=== PATIENT | male | born 1930 | race Caucasian/White ===

== ENCOUNTER 2016-03-21 04:13 | Inpatient (IN) | payer OTHER ==
[~2016-03-21] VITALS: Ht 177.8 cm; Wt 88.0 kg
[~2016-03-21 04:13] MED LIST: CHL4PW PO; GEMF600T3 OR; THAL100C PO; [UNRECOGNIZED DRUG - CODE] IV
[2016-03-21 04:33] LABS: Basophils # (auto) 0 uL; Basophils % (auto) 0.6 % (0.0-2.0); DEFINITIVE VIEW TRANSMISSION; Eosinophils # (auto) 0.1 uL; Eosinophils % (auto) 2.7 % (0.0-7.0); Hematocrit 37.8 % (41.0-53.0); Hemoglobin 12.5 g/dL (13.5-17.5); Lymphocytes # (auto) 0.6 uL; Lymphocytes % (auto) 17.6 % (10.0-50.0); Mean Corpuscular Hemoglobin 35.6 pg (28.0-32.0); Mean Corpuscular Volume 107.9 fL (80.0-100.0); Monocytes # (auto) 0.2 uL; Monocytes % (auto) 4.8 % (0.0-12.0); Neutrophils # (auto) 2.4 uL; Neutrophils % (auto) 74.3 % (37.0-80.0); Platelet Count (auto) 50 10^3/uL (140-450); SUSPECT VIEW TRANSMISSION; White Blood Cell 3.2 10^3/uL (4.4-10.8)
[2016-03-21 04:39] LABS: Red Cell Distribution Width 20.4 % (11.6-16.0)
[2016-03-21 04:48] LABS: Partial Thromboplastin Time 41.5 sec (22.64-33.71)
[2016-03-21 04:52] LABS: Prothrombin Time 56.3 sec (9.37-12.3)
[2016-03-21 04:53] LABS: INR 5.47 (0.9-1.15)
[2016-03-21 05:01] LABS: Albumin 3.3 g/dL (3.4-5.0); Calcium 8.3 mg/dL (8.5-10.1); Potassium 4.2 mmol/L (3.5-5.1)
[2016-03-21 05:04] LABS: Bilirubin, Total 1.5 mg/dL (0.2-1.0); Total Protein 6.2 g/dL (6.4-8.2)
[2016-03-21 05:09] LABS: Anisocytosis Slight; Platelet Estimate Decreased
[2016-03-21 05:10] LABS: Macrocytosis Moderate
[2016-03-21 05:11] LABS: Ovalocytes FEW
[2016-03-21] MEDS ORDERED: ONDANSETRON HCL 4 MG/2 ML VIAL IV ONE (05:15)
[2016-03-21] MEDS ORDERED: MORPHINE SULFATE 4 MG/ML SYRG IV ONE (05:15)
[2016-03-21] MEDS ORDERED: ASPI81TA27 PO (06:38)
[2016-03-21] MEDS ORDERED: cloNIDine HCL 0.1 MG TAB PO PRN (09:30)
[2016-03-21] MEDS ORDERED: cefTRIAXone 1GM/50ML D5W 50 ML IV ONE (09:30)
[2016-03-21] MEDS ORDERED: TEMAZEPAM 15 MG CAP PO PRN (09:45)
[2016-03-21] MEDS ORDERED: HYDROcodone-ACET 5/325MG TAB PO PRN (09:45)
[2016-03-21] MEDS ORDERED: ACETAMINOPHEN 325 MG TAB PO PRN (09:45)
[2016-03-21] MEDS ORDERED: MORPHINE SULF INJ 2 MG/ML SYRINGE 1ML IV PRN ×2 (09:45)
[2016-03-21] MEDS ORDERED: ONDANSETRON HCL 4 MG/2 ML VIAL IV PRN (09:45)
[2016-03-21] MEDS: SODIUM CHLORIDE 0.9% 1,000 ML IV SCH (10:07)
[2016-03-21] MEDS: FAMOTIDINE 20 MG TAB PO SCH ×2 (10:10→21:23)
[2016-03-21] MEDS: MULTIPLE VITAMIN TAB PO SCH (10:10)
[2016-03-21] MEDS: GEMFIBROZIL 600 MG TAB PO SCH ×2 (10:10→21:22)
[2016-03-21 10:46] VITALS: BP 115/65
[2016-03-21] MEDS: CHOLESTYRAMINE 4 GM POWDER PO SCH ×2 (11:00→23:20)
[2016-03-21] MEDS: BOOST PLUS 8 ounce PO SCH ×2 (12:00→21:23)
[2016-03-21 15:14] VITALS: BP 118/72
[2016-03-21] MEDS: AZITHROMYCIN 500MG/D5W 250ML 250 ML IV SCH (15:45)
[2016-03-21 17:00] VITALS: BP_SYST 119; BP_SYST 96; BP_DIAS 64; BP_DIAS 76
[2016-03-21] MEDS: MORPHINE SULF 30 mg ER tab PO SCH (21:23)
[2016-03-21 22:00] VITALS: BP 127/64
[2016-03-21] MEDS ORDERED: SENNA 8.6 MG TAB PO ONE (22:00)
[2016-03-22] MEDS: SODIUM CHLORIDE 0.9% 1,000 ML IV SCH ×2 (03:29→21:51)
[2016-03-22 04:20] LABS: Urine RBC None Seen /hpf (0 - 3)
[2016-03-22 04:36] LABS: Urine Bilirubin Negative (Negative); Urine Blood Negative /uL (Negative); Urine Color Yellow (Yellow); Urine Glucose Normal (Normal); Urine Ketone Negative (Negative); Urine Nitrite Negative (Negative); Urine pH 5.5 (5.0-8.0)
[2016-03-22 05:00] VITALS: BP 127/68
[2016-03-22 06:07] LABS: Basophils # (auto) 0 uL; Basophils % (auto) 0.6 % (0.0-2.0); DEFINITIVE VIEW TRANSMISSION; Eosinophils # (auto) 0.1 uL; Hematocrit 34.5 % (41.0-53.0); Hemoglobin 11.4 g/dL (13.5-17.5); Lymphocytes # (auto) 0.5 uL; Lymphocytes % (auto) 26.1 % (10.0-50.0); Mean Corpuscular Hemoglobin 35.7 pg (28.0-32.0); Mean Corpuscular Hgb Conc. 33.1 g/dL (32.0-36.0); Mean Platelet Volume 10.4 fL (7.4-10.4); Monocytes # (auto) 0.1 uL; Monocytes % (auto) 5.5 % (0.0-12.0); Neutrophils # (auto) 1.3 uL; Neutrophils % (auto) 64.8 % (37.0-80.0); Platelet Count (auto) 46 10^3/uL (140-450)
[2016-03-22 06:29] LABS: Red Cell Distribution Width 21.2 % (11.6-16.0)
[2016-03-22 06:35] LABS: Albumin 3.1 g/dL (3.4-5.0); BUN/Creatinine Ratio 21.4; Bilirubin, Total 1.3 mg/dL (0.2-1.0); Calcium 8.5 mg/dL (8.5-10.1); Total Protein 5.9 g/dL (6.4-8.2)
[2016-03-22 06:46] LABS: Anisocytosis Moderate
[2016-03-22 06:47] LABS: Macrocytosis Moderate; Ovalocytes FEW; Platelet Estimate Decreased
[2016-03-22] MEDS: BOOST PLUS 8 ounce PO SCH ×3 (08:00→18:00)
[2016-03-22 08:56] VITALS: BP 118/76
[2016-03-22] MEDS: cefTRIAXone 1GM/50ML D5W 50 ML IV SCH (09:00)
[2016-03-22] MEDS: AZITHROMYCIN 500MG/D5W 250ML 250 ML IV SCH (10:04)
[2016-03-22] MEDS: GEMFIBROZIL 600 MG TAB PO SCH ×2 (10:05→21:51)
[2016-03-22] MEDS: FAMOTIDINE 20 MG TAB PO SCH ×2 (10:05→21:51)
[2016-03-22] MEDS: MORPHINE SULF 30 mg ER tab PO SCH ×2 (10:06→21:51)
[2016-03-22] MEDS: MULTIPLE VITAMIN TAB PO SCH (10:06)
[2016-03-22] MEDS: CHOLESTYRAMINE 4 GM POWDER PO SCH ×2 (11:00→23:29)
[2016-03-22 13:01] VITALS: BP 133/71
[2016-03-22 16:58] VITALS: BP 127/72
[2016-03-22 22:00] VITALS: BP 125/87
[2016-03-23 05:00] VITALS: BP 129/80
[2016-03-23 07:36] LABS: Basophils # (auto) 0.1 uL; Basophils % (auto) 2.3 % (0.0-2.0); DEFINITIVE VIEW TRANSMISSION; Eosinophils # (auto) 0 uL; Eosinophils % (auto) 0.8 % (0.0-7.0); Hematocrit 36.8 % (41.0-53.0); Hemoglobin 11.8 g/dL (13.5-17.5); Lymphocytes # (auto) 0.5 uL; Lymphocytes % (auto) 21.6 % (10.0-50.0); Mean Corpuscular Hemoglobin 35.4 pg (28.0-32.0); Mean Corpuscular Hgb Conc. 32.1 g/dL (32.0-36.0); Mean Corpuscular Volume 110.2 fL (80.0-100.0); Mean Platelet Volume 10.2 fL (7.4-10.4); Monocytes # (auto) 0.1 uL; Monocytes % (auto) 5.9 % (0.0-12.0); Neutrophils # (auto) 1.5 uL; Neutrophils % (auto) 69.4 % (37.0-80.0); Platelet Count (auto) 45 10^3/uL (140-450); SUSPECT VIEW TRANSMISSION; White Blood Cell 2.2 10^3/uL (4.4-10.8)
[2016-03-23 07:51] LABS: Red Cell Distribution Width 20.3 % (11.6-16.0)
[2016-03-23] MEDS: BOOST PLUS 8 ounce PO SCH ×2 (08:00→12:03)
[2016-03-23 08:07] LABS: BUN/Creatinine Ratio 22.1; Calcium 8.7 mg/dL (8.5-10.1); Potassium 4.6 mmol/L (3.5-5.1)
[2016-03-23 09:00] VITALS: BP 108/60
[2016-03-23] MEDS: cefTRIAXone 1GM/50ML D5W 50 ML IV SCH (09:32)
[2016-03-23] MEDS: GEMFIBROZIL 600 MG TAB PO SCH (09:32)
[2016-03-23] MEDS: MORPHINE SULF 30 mg ER tab PO SCH (09:33)
[2016-03-23] MEDS: MULTIPLE VITAMIN TAB PO SCH (09:33)
[2016-03-23] MEDS: FAMOTIDINE 20 MG TAB PO SCH (09:33)
[2016-03-23 09:34] LABS: Anisocytosis Slight; Macrocytosis Slight; Platelet Estimate Markedly Decreased
[2016-03-23] MEDS: SODIUM CHLORIDE 0.9% 1,000 ML IV SCH (11:05)
[2016-03-23] MEDS: CHOLESTYRAMINE 4 GM POWDER PO SCH (11:05)
[2016-03-23] MEDS: AZITHROMYCIN 500MG/D5W 250ML 250 ML IV SCH (11:05)
[2016-03-23 13:00] VITALS: BP 103/70
[2016-03-23 14:38] VITALS: BP 108/60
== END 2016-03-23 15:15 | disposition home or self-care (01) | DRG 193 ==
LOC: ER 04:14 → TELE 04:15 → TELE-E-ADS 10:50 → TELE-WESTW 14:49
PROVIDERS: ADMIT Internal Medicine; ATTEND Family Medicine
DX: J18.9 Pneumonia, unspecified organism (principal); D61.810 Antineoplastic chemotherapy induced pancytopenia; C90.00 Multiple myeloma not having achieved remission; I48.92 Unspecified atrial flutter; D68.59 Other primary thrombophilia; E44.1 Mild protein-calorie malnutrition; I13.0 Hypertensive heart and chronic kidney disease with heart failure and stage 1 through stage 4 chronic kidney disease, or unspecified chronic kidney disease; I50.32 Chronic diastolic (congestive) heart failure; J45.901 Unspecified asthma with (acute) exacerbation; D61.818 Other pancytopenia; I35.2 Nonrheumatic aortic (valve) stenosis with insufficiency; D63.8 Anemia in other chronic diseases classified elsewhere; C61 Malignant neoplasm of prostate; E83.51 Hypocalcemia; E86.0 Dehydration; I07.1 Rheumatic tricuspid insufficiency; T45.1X5A Adverse effect of antineoplastic and immunosuppressive drugs, initial encounter; I48.2 Chronic atrial fibrillation; I27.2 Other secondary pulmonary hypertension; M81.0 Age-related osteoporosis without current pathological fracture; N18.2 Chronic kidney disease, stage 2 (mild); M54.9 Dorsalgia, unspecified; R19.7 Diarrhea, unspecified; Z90.89 Acquired absence of other organs; Z85.830 Personal history of malignant neoplasm of bone; Z88.8 Allergy status to other drugs, medicaments and biological substances; Z92.21 Personal history of antineoplastic chemotherapy
CPT/HCPCS: 36415; 71010; 71250; 72128; 72131; 80048; 80053; 81001; 84484; 85025; 85610; 85730; 87040; 87086; 87400; 93005; 93306; 94761; 96365; 96375; J0696; J2405

== ENCOUNTER → 2016-03-29 | Outpatient (CLI) | payer OTHER ==
[~2016-03-29] MED LIST changes: +ASPI81TA27 PO
[2016-03-29 16:44] LABS: Basophils # (auto) 0 uL; Basophils % (auto) 2.5 % (0.0-2.0); DEFINITIVE VIEW TRANSMISSION; Eosinophils # (auto) 0 uL; Eosinophils % (auto) 1.9 % (0.0-7.0); Hematocrit 32.8 % (41.0-53.0); Hemoglobin 11.1 g/dL (13.5-17.5); Lymphocytes # (auto) 0.3 uL; Lymphocytes % (auto) 18.6 % (10.0-50.0); Mean Corpuscular Hemoglobin 36.4 pg (28.0-32.0); Mean Corpuscular Hgb Conc. 33.7 g/dL (32.0-36.0); Mean Corpuscular Volume 108.1 fL (80.0-100.0); Monocytes # (auto) 0.1 uL; Monocytes % (auto) 6.9 % (0.0-12.0); Neutrophils # (auto) 1.2 uL; Neutrophils % (auto) 70.1 % (37.0-80.0); Platelet Count (auto) 49 10^3/uL (140-450)
[2016-03-29 16:45] LABS: Red Cell Distribution Width 23.1 % (11.6-16.0); White Blood Cell 1.7 10^3/uL (4.4-10.8)
[2016-03-29 17:21] LABS: Anisocytosis Moderate; Platelet Estimate Decreased
[2016-03-29 17:22] LABS: Macrocytosis Moderate
== END | disposition home or self-care (01) ==
LOC: LAB 15:40
PROVIDERS: ATTEND Internal Medicine
DX: C90.00 Multiple myeloma not having achieved remission (principal)
CPT/HCPCS: 36415; 82232; 82784; 83883; 85025; 85049

== ENCOUNTER 2016-04-05 21:34 | Inpatient (IN) | payer OTHER ==
[~2016-04-05] VITALS: Ht 177.8 cm; Wt 82.4 kg
[2016-04-05 22:39] LABS: Basophils # (auto) 0 uL; Basophils % (auto) 0.6 % (0.0-2.0); DEFINITIVE VIEW TRANSMISSION; Eosinophils # (auto) 0 uL; Eosinophils % (auto) 0.8 % (0.0-7.0); Hematocrit 37.8 % (41.0-53.0); Hemoglobin 12.5 g/dL (13.5-17.5); Lymphocytes # (auto) 0.6 uL; Lymphocytes % (auto) 14.7 % (10.0-50.0); Mean Corpuscular Hgb Conc. 33.1 g/dL (32.0-36.0); Mean Corpuscular Volume 108.7 fL (80.0-100.0); Mean Platelet Volume 9.5 fL (7.4-10.4); Monocytes # (auto) 0.4 uL; Monocytes % (auto) 9.3 % (0.0-12.0); Neutrophils # (auto) 2.8 uL; Neutrophils % (auto) 74.6 % (37.0-80.0); Platelet Count (auto) 67 10^3/uL (140-450); SUSPECT VIEW TRANSMISSION; White Blood Cell 3.8 10^3/uL (4.4-10.8)
[2016-04-05 22:45] LABS: Red Cell Distribution Width 21.3 % (11.6-16.0)
[2016-04-05 23:01] LABS: Albumin 3.2 g/dL (3.4-5.0); BUN/Creatinine Ratio 18.5; Bilirubin, Total 1.7 mg/dL (0.2-1.0); Calcium 8.8 mg/dL (8.5-10.1); Magnesium 1.7 mg/dL (1.6-2.6); Potassium 5.1 mmol/L (3.5-5.1); Total Protein 6.5 g/dL (6.4-8.2)
[2016-04-05 23:12] LABS: B-Type Natriuretic Peptide 178.64 pg/mL (0-100)
[2016-04-05] MEDS ORDERED: SODIUM CHLORIDE 0.9% 1,000 ML IV ONE (23:15)
[2016-04-05 23:20] LABS: Platelet Estimate Decreased
[2016-04-05 23:21] LABS: Anisocytosis Moderate; Macrocytosis Moderate
[2016-04-06] MEDS ORDERED: methylPREDNISolone SOD SUCC 125 MG/2 ML VL IV ONE (03:00)
[2016-04-06] MEDS ORDERED: ONDANSETRON HCL 4 MG/2 ML VIAL IV PRN (03:00)
[2016-04-06] MEDS ORDERED: ALBUTEROL SULF 2.5 MG/0.5ML(0.5%) NEB SOLN NEB PRN (03:00)
[2016-04-06] MEDS ORDERED: ACETAMINOPHEN 325 MG TAB PO PRN (03:00)
[2016-04-06] MEDS ORDERED: LEVOFLOXACIN 500MG 100 ML IV ONE (03:00)
[2016-04-06] MEDS ORDERED: LEVOFLOXACIN 750MG 150 ML IV ONE (03:32)
[2016-04-06 04:00] VITALS: BP 121/75
[2016-04-06] MEDS: HYDROcodone-ACET 5/325MG TAB PO PRN (04:30)
[2016-04-06 05:44] VITALS: BP 121/75
[2016-04-06 09:08] VITALS: BP 127/88
[2016-04-06] MEDS: GEMFIBROZIL 600 MG TAB PO SCH ×2 (10:09→22:19)
[2016-04-06] MEDS: ASPirin 81 mg TAB PO SCH (10:09)
[2016-04-06] MEDS: methylPREDNISolone SOD SUCC 125 MG/2 ML VL IV SCH ×2 (10:09→22:19)
[2016-04-06] MEDS: FAMOTIDINE 20 MG TAB PO SCH ×2 (10:09→22:19)
[2016-04-06] MEDS: ENOXAPARIN SOD 40 MG/0.4 ML SYRINGE SC SCH (10:10)
[2016-04-06] MEDS: CHOLESTYRAMINE 4 GM POWDER GT SCH ×2 (10:59→22:42)
[2016-04-06 12:35] VITALS: BP 120/70
[2016-04-06 16:58] VITALS: BP 122/69
[2016-04-06 22:00] VITALS: BP 120/80
[2016-04-06] MEDS ORDERED: LEVOFLOXACIN 750MG 150 ML IV SCH (22:00)
[2016-04-07 05:00] VITALS: BP 126/77
[2016-04-07 06:13] LABS: Basophils # (auto) 0 uL; Basophils % (auto) 0.1 % (0.0-2.0); DEFINITIVE VIEW TRANSMISSION; Eosinophils # (auto) 0 uL; Hematocrit 33.1 % (41.0-53.0); Hemoglobin 11.2 g/dL (13.5-17.5); Lymphocytes # (auto) 0.5 uL; Lymphocytes % (auto) 12.2 % (10.0-50.0); Mean Corpuscular Hgb Conc. 33.7 g/dL (32.0-36.0); Mean Corpuscular Volume 109.7 fL (80.0-100.0); Mean Platelet Volume 9.5 fL (7.4-10.4); Monocytes # (auto) 0.5 uL; Neutrophils # (auto) 3.2 uL; Neutrophils % (auto) 76.7 % (37.0-80.0); Platelet Count (auto) 38 10^3/uL (140-450); Red Cell Distribution Width 19.5 % (11.6-16.0); SUSPECT VIEW TRANSMISSION; White Blood Cell 4.2 10^3/uL (4.4-10.8)
[2016-04-07 07:01] LABS: Albumin 2.9 g/dL (3.4-5.0); BUN/Creatinine Ratio 36.7; Bilirubin, Total 1.1 mg/dL (0.2-1.0); Calcium 9.1 mg/dL (8.5-10.1); Potassium 3.5 mmol/L (3.5-5.1)
[2016-04-07 09:00] VITALS: BP 147/86
[2016-04-07] MEDS: methylPREDNISolone SOD SUCC 125 MG/2 ML VL IV SCH (09:56)
[2016-04-07] MEDS: FAMOTIDINE 20 MG TAB PO SCH (09:56)
[2016-04-07] MEDS: ENOXAPARIN SOD 40 MG/0.4 ML SYRINGE SC SCH (09:56)
[2016-04-07] MEDS: ASPirin 81 mg TAB PO SCH (09:56)
[2016-04-07] MEDS: GEMFIBROZIL 600 MG TAB PO SCH (09:56)
[2016-04-07] MEDS: HYDROcodone-ACET 5/325MG TAB PO PRN ×2 (10:04→15:23)
[2016-04-07] MEDS: CHOLESTYRAMINE 4 GM POWDER GT SCH (10:38)
[2016-04-07 12:30] VITALS: BP 91/59
[2016-04-07 13:00] VITALS: BP 133/82
[2016-04-07 14:41] VITALS: BP 91/59
== END 2016-04-07 15:35 | disposition home or self-care (01) | DRG 190 ==
LOC: ER 21:34 → EDBD 21:34 → OVERFLOW 21:35 → WEST WING 04-06 03:50
PROVIDERS: ADMIT Nurse Practitioner; ATTEND Family Medicine
DX: J44.0 Chronic obstructive pulmonary disease with (acute) lower respiratory infection (principal); J18.9 Pneumonia, unspecified organism; E44.1 Mild protein-calorie malnutrition; C90.00 Multiple myeloma not having achieved remission; M54.9 Dorsalgia, unspecified; C61 Malignant neoplasm of prostate; D64.9 Anemia, unspecified; I48.2 Chronic atrial fibrillation; Z90.49 Acquired absence of other specified parts of digestive tract; Z81.1 Family history of alcohol abuse and dependence; Z82.49 Family history of ischemic heart disease and other diseases of the circulatory system; Z82.3 Family history of stroke; Z84.89 Family history of other specified conditions; Z80.1 Family history of malignant neoplasm of trachea, bronchus and lung; Z80.42 Family history of malignant neoplasm of prostate; Z81.8 Family history of other mental and behavioral disorders; Z82.0 Family history of epilepsy and other diseases of the nervous system; Z80.8 Family history of malignant neoplasm of other organs or systems; Z80.3 Family history of malignant neoplasm of breast; Z79.899 Other long term (current) drug therapy; Z88.8 Allergy status to other drugs, medicaments and biological substances; Z68.26 Body mass index [BMI] 26.0-26.9, adult
CPT/HCPCS: 36415; 71010; 80053; 83735; 83880; 84484; 85025; 85049; 87081; 93005; 96361; 96374; J1956